=== PATIENT | male | born 2000 | race Two or more races ===

== ENCOUNTER 2024-06-05 09:26 | Emergency (ER) | payer OTHER ==
[~2024-06-05] VITALS: Ht 177.8 cm; Wt 71.7 kg
[2024-06-05 09:40] VITALS: BP 118/80; O2SAT 96
[2024-06-05] MEDS ORDERED: AMOX-CLAV 875-1 EACH PO (09:56)
[2024-06-05] MEDS ORDERED: TRIAMCINOLONE ACETONIDE 40 MG/ML VIAL IM ONE (10:00)
[2024-06-05] MEDS ORDERED: TRIAMCINOLONE ACETONIDE 40 MG/ML VIAL ONE (10:01)
== END 2024-06-05 10:41 | disposition home or self-care (01) ==
LOC: ER 09:29
DX: H66.92 Otitis media, unspecified, left ear (principal); Z91.013 Allergy to seafood